=== PATIENT | female | born 1975 | race Caucasian/White ===

== ENCOUNTER → 2017-07-27 08:29 | Outpatient (CLI) | payer OTHER, SELFPAY ==
--- NOTE | 2017-07-27 08:35 | US_ITS ---
STUDY: ABDOMINAL ULTRASOUND - RIGHT UPPER QUADRANT REASON FOR VISIT: Female, 42 years old. Right upper quadrant pain. TECHNIQUE: Ultrasound evaluation of the right upper quadrant was performed with real-time and static gallego-scale imaging. TECHNICAL QUALITY: Adequate. COMPARISON: None. FINDINGS: Liver: The liver measures 14.8 cm. There is increased echogenicity consistent with mild fatty infiltration. The bile ducts are within normal limits. There is hepatic color flow. The direction of portal flow is hepatopetal. There is a 2.1 cm x 1.8 cm x 1.6 cm septated cyst in the left lobe of the liver. Gallbladder: Normal distended gallbladder. The gallbladder wall measures 2.4 mm. There is a negative sonographic Tirado's sign. There is no pericholecystic fluid. There are no gallstones. Common Bile Duct (C.B.D.): The common bile duct measures 4.1 mm. Pancreas: Normal size of the head, body and tail of the pancreas. There is normal echogenicity of the pancreas. There is no demonstrated pancreatic mass or cyst. Right Kidney: Normal size of the right kidney. The right kidney measures 11.5 cm x 4.9 cm x 4.3 cm. Normal renal cortex. The right cortex measures 1.2 cm. There is no demonstrated renal mass or cyst. There is no right hydronephrosis. US/Abdomen Limited IMPRESSION: Mild degree of fatty infiltration of the liver. Septated cyst in the left lobe of the liver. Electronically Signed: James Fermin MD at 10:26 EST Tel [phone], Service support ,
== END ==
LOC: USHP 08:31
PROVIDERS: Family Provider Family Medicine; PCP Family Medicine; Visit Provider Family Medicine
DX: R10.11 Right upper quadrant pain (principal)
CPT/HCPCS: 76705

== ENCOUNTER → 2017-09-23 08:08 | Outpatient (CLI) | payer OTHER, SELFPAY ==
--- NOTE | 2017-09-23 08:11 | RAD_ITS ---
PROCEDURE: SMALL BOWEL SERIES DATE OF EXAMINATION: September 23, 2017.. INDICATION: Female, 42 years old. Abdominal cramping with diarrhea and constipation. PHYSICIAN: James Fermin M.D. FLUOROSCOPY TIME (if supplied): (0:17) minutes/seconds TECHNIQUE: Radiographic and fluoroscopic images were taken of the small intestine following the ingestion of barium. COMPARISON: None. FINDINGS: A preliminary supine KUB was obtained. There is an unremarkable bowel gas pattern. A large amount of fecal material is present throughout the colon. The lung bases are unremarkable. The osseous structures are normal. The patient orally ingested approximately 12 ounces of thin barium Normal visualized fundus, body, and antrum of the stomach. Normal duodenal bulb, C-loop, and proximal jejunum. Normal visualized mucosal folds of the jejunum and ileum. There are no demonstrated dilatations, strictures, or masses of the small intestine. There is no mass displacement of the loops of small intestine. There is a normal motor pattern with barium reaching the colon within approximately 30 minutes. Spot films under fluoroscopic observation demonstrated a normal terminal ileum and ileocecal valve. RAD/Small Bowel Series Only IMPRESSION: Normal small bowel series. Electronically Signed: James Fermin MD at 13:59 EDT Tel [phone], Service support ,
== END ==
LOC: RAD 08:09
PROVIDERS: Family Provider Family Medicine; PCP Family Medicine; Visit Provider Nurse Practitioner Adult Health
DX: R10.33 Periumbilical pain (principal)
CPT/HCPCS: 74250

== ENCOUNTER → 2017-10-16 13:41 | Outpatient (CLI) | payer OTHER, SELFPAY ==
--- NOTE | 2017-10-16 13:44 | CT_ITS ---
STUDY: CT ABDOMEN WITH CONTRAST REASON FOR EXAM: Female, 42 years old. Liver cyst follow-up RADIATION DOSAGE (If Supplied By Facility): CTDIvol = ( 10.14 ) mGy, DLP = ( 363.11 ) mGycm TECHNIQUE: Transaxial images were obtained post I.V. administration of 100 ml of Isovue 300 contrast, and with oral contrast. Sagittal and coronal images were reconstructed. Individualized dose optimization techniques were used for this CT. COMPARISON: 07/06/2017 FINDINGS: The visualized lung bases are unremarkable. The visualized portions of the heart are within normal limits. Within the lateral aspect of the left lobe of the liver, there is a mildly bilobed well-defined nonenhancing cyst measuring 2.1 x 1.8 cm. The remainder of the liver is within normal limits. The gallbladder is contracted. Normal spleen. Normal pancreas. Normal bilateral adrenal glands. Normal right kidney. Normal left kidney. Normal visualized stomach. Visualized small and large bowel are within normal limits. Patient is status post appendectomy. Normal abdominal aorta. Normal inferior vena cava. Normal retroperitoneum. Normal abdominal wall. Normal osseous structures. CT/Abdomen WITH IV Contrast IMPRESSION: Well-defined mildly bilobed left lobe liver cyst. Otherwise, normal liver. Remainder is within normal limits. Electronically Signed: oRni Olson DO at 17:54 EDT Tel , Service support ,
== END ==
LOC: CT 13:43
PROVIDERS: Family Provider Family Medicine; PCP Family Medicine; Visit Provider Nurse Practitioner Adult Health
DX: K76.89 Other specified diseases of liver (principal)
CPT/HCPCS: 74160; Q9967

== ENCOUNTER → 2017-12-03 08:55 | Outpatient (CLI) | payer OTHER, SELFPAY ==
[2017-12-03 10:03] LABS: Absolute Lymphocyte Count 2.06 X10^3/ul (0.83-4.51); Absolute Neutrophil Count 3.1 X10^3/uL (2.0-7.7); Basophil# 0.03 X10^3/uL; Basophil% 0.5 % (0-1); Eosinophil# 0.38 X10^3/uL; Eosinophils% 6.3 % (0-5); Hematocrit 42.8 % (37-47); Hemoglobin 14.4 g/dl (12.0-15.0); Lymphocyte # 2.06 X10^3/ul (4.0); Lymphocyte % 34.3 % (19-41); Mean Corp Hgb Conc 33.6 g/gl (32-36); Mean Corpuscular Hgb 28.7 pg (27.0-32.0); Mean Corpuscular Volume 85.4 fL (81-99); Mean Platelet Vol. 9.1 fl (6.2-12.0); Monocyte# 0.44 X10^3/uL; Monocyte% 7.3 % (0-10); Neutrophil % 51.6 % (47-70); Platelet Count 273 K/mm3 (150-450); RBC Distribution Width CV 13.9 % (11.6-14.6); RBC Distribution Width SD 43.2 fl (35.1-43.9); Red Blood Count 5.01 M/mm3 (4.2-5.4)
[2017-12-03 10:04] LABS: POSITIVE COUNT NO; POSITIVE DIFFERENTIAL NO; POSITIVE MORPHOLOGY NO
[2017-12-03 10:34] LABS: AST(SGOT) 16 U/L (15-37); Alanine Aminotransfer ALT/SGPT 21 U/L (13-56); Albumin, Serum 3.7 g/dL (3.2-5.0); Alkaline Phosphatase 71 U/L (45-117); Anion Gap 6 (5-15); BUN 11 mg/dL (7-18); BUN/Creat Ratio 15.7 RATIO (10-20); CRP < 2.90 mg/L (0.0-3.0); Chloride 106 mmol/L (98-107); EST Glomerular Filtration Rate 96 mL/min (>60); Est Glom Filt Rate - Afr Amer 117 mL/min (>60); Globulin 3.7 g/dL (2.2-4.2); Glucose 88 mg/dL (74-106); Potassium 3.9 mmol/L (3.5-5.1); Protein, Total 7.4 g/dL (6.4-8.2); Rheumatoid Factor < 10.0 IU/mL (<15); Sodium Level 140 mmol/L (136-145); Thyroid Stim Hormone (TSH) 0.59 uIU/mL (0.358-3.74)
[2017-12-04 09:56] LABS: Vitamin D,25 Hydroxy 20.1 ng/mL (29.95-100.01)
[2017-12-04 14:09] LABS: Anti-Centromere B Ab <0.2 AI (0.0-0.9); Anti-Chromatin <0.2 AI (0.0-0.9); Anti-Jo <0.2 AI (0.0-0.9); Anti-Scleroderma-70 AB <0.2 AI (0.0-0.9); RNP Ab <0.2 AI (0.0-0.9); SJOGREN'S Anti-SS-A test < 0.2 AI (0.0-0.9); SJOGREN'S Anti-SS-B test < 0.2 AI (0.0-0.9); Smith Ab <0.2 AI (0.0-0.9)
[2017-12-04 14:33] LABS: Anti-dsDNA Ab 2 IU/mL (0-9)
== END ==
PROVIDERS: Family Provider Family Medicine; PCP Family Medicine; Visit Provider Family Medicine
DX: E72.12 Methylenetetrahydrofolate reductase deficiency (principal); R76.8 Other specified abnormal immunological findings in serum; M06.4 Inflammatory polyarthropathy
CPT/HCPCS: 36415; 80053; 81291; 82306; 84443; 85025; 86140; 86225; 86235; 86431

== ENCOUNTER → 2017-12-07 10:39 | Outpatient (CLI) | payer OTHER, SELFPAY ==
--- NOTE | 2017-12-07 10:41 | US_ITS ---
STUDY: THYROID ULTRASOUND REASON FOR EXAM: Female, 42 years old. Thyroid nodule identified in left lower lobe by physician TECHNIQUE: Ultrasound evaluation of the thyroid was performed with real-time and static gallego-scale imaging. COMPARISON: None. FINDINGS: RIGHT LOBE: The right lobe of the thyroid gland measures 5.5 x 2.2 x 2.1 cm. There is a homogeneous echotexture. Solid nodule midpole measuring 0.3 x 0.3 x 0.3 cm. LEFT LOBE: The left lobe of the thyroid gland measures 5.2 x 2.2 x 1.9 cm. There is a homogeneous echotexture. Solid nodules in the lower pole measuring 0.4 x 0.3 x 0.3 cm and 0.8 x 0.7 x 0.5 cm. ISTHMUS: The isthmus measures 3 mm . The regional lymph nodes are normal. US/Thyroid IMPRESSION: The thyroid gland is enlarged. Bilateral solid nodules, the largest on the right measuring 0.3 cm and on the left 0.8 cm. Electronically Signed: Arsen Reeves MD at 7:11 EDT , Service support ,
== END ==
PROVIDERS: Family Provider Family Medicine; PCP Family Medicine; Visit Provider Family Medicine
DX: E07.9 Disorder of thyroid, unspecified (principal)
CPT/HCPCS: 76536

== ENCOUNTER → 2017-12-21 07:19 | Outpatient (CLI) | payer OTHER, SELFPAY ==
--- NOTE | 2017-12-21 07:22 | NM_ITS ---
CLINICAL: 42-year-old female with reported history of thyroid nodularity. I-123 THYROID UPTAKE and SCAN COMPARISON: Thyroid ultrasound report 12/07/2017 FINDINGS: The patient was administered a 308 uCi I-123 capsule by mouth. The 4-hour I-123 radioactive iodine thyroidal uptake was calculated to be 10.4 % (normal 5 to 25 %). The 24-hour I-123 radioactive iodine thyroidal uptake was calculated to be 29.6 % (normal 5 to 40 %). The I-123 thyroid scan demonstrates homogeneous radiopharmaceutical concentration throughout both lobes of a U-shaped thyroid gland. There are no colloidal parenchymal hypofunctioning cold nodules noted in either lobe of the thyroid gland. NM/Thyroid Uptake Single or Mult IMPRESSION: 1. NORMAL 4- and 24-hour I-123 radioactive iodine thyroidal uptakes. 2. 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 (Wilfrid et al, J Nucl Med 32: 1455, 1990). 3. No hypofunctioning-cold nodules are identified. Electronically Signed: Mesfin Begum DO at 7:33 EDT Tel , Service support ,
== END ==
PROVIDERS: Family Provider Family Medicine; PCP Family Medicine; Visit Provider Family Medicine
DX: E04.2 Nontoxic multinodular goiter (principal)
CPT/HCPCS: 78012; A9516

== ENCOUNTER 2018-02-08 21:06 | Emergency (ER) | payer OTHER, SELFPAY ==
[2018-02-08 21:07] VITALS: BP 114/87; PULSE 86; RESP 18; TEMP 36.5; O2SAT 99; BMI 22.6
--- NOTE | 2018-02-08 22:54 | ED.DCSUM_ITS ---
- ER Visit Summary Date of Service: 02/08/18 Chief Complaint: Right ankle pain History of Present Illness: The patient is a [address] David Palafox. She reports that she stepped in a hole this evening and had a forced inversion injury of her right ankle. States that she heard a pop. She has pain is sharp and 10 out of 10 with walking. 7 out of 10 at rest. Does complain of paresthesias in her small toe. She denies any other injuries. Physical Examination: Vitals: Stable. Afebrile. Neck: No vertebral tenderness. Full ROM without difficulty. Cleared by NEXUS criteria. Back: No vertebral tenderness. General: A&O x 3. NAD. Cardiovascular exam: Regular rate and rhythm, no murmur, rub or gallop. Respiratory exam: Chest nontender. No crepitus. Clear to auscultation bilaterally. No wheezes or stridor. Abdominal exam: Soft, nontender, nondistended, normal bowel sounds. No pain in RUQ or LUQ specifically. No peritoneal signs. Extremity: Moderate tenderness palpation over the lateral malleolus. No pain over the medial malleolus. No pain of the base the fifth metatarsal or proximal fibula. Test Results: X-ray is negative. Emergency Department Course and Treatment: Patient refused pain medications. She is placed in an Aircast and placed on crutches. Treatment Plan: Patient be discharged instructions from Dr. David Palafox in 1 week if not improving. Disposition: To home in improved and stable condition. Impression: 1. Right ankle sprain. This note was generated with [employer] dictation software. It may contain incorrect words, spelling, and punctuation that were not noted in review of the chart prior to signing ED Disposition - Plan for ED Patient: Disposition: Home or Assisted Living Chief Complaint: Lower Extremity Injury Instructions: ED Sprain Ankle W X Ray Referrals: David Palafox MD [Primary Care Provider] - 1 Week if not improving
[2018-02-08 23:10] VITALS: BP 116/72; PULSE 80; RESP 18; O2SAT 96
== END 2018-02-08 23:11 | disposition home or self-care (01) ==
LOC: ED 22:44
PROVIDERS: Emergency Provider Emergency Medicine; Family Provider Family Medicine; PCP Family Medicine
DX: S93.401A Sprain of unspecified ligament of right ankle, initial encounter (principal); R20.2 Paresthesia of skin; X50.1XXA Overexertion from prolonged static or awkward postures, initial encounter; Y93.9 Activity, unspecified; Y92.9 Unspecified place or not applicable; F17.200 Nicotine dependence, unspecified, uncomplicated
CPT/HCPCS: 73610; 99284

== ENCOUNTER → 2018-02-18 14:19 | Outpatient (CLI) | payer OTHER, SELFPAY | PROVIDERS: Family Provider Family Medicine; PCP Family Medicine; Visit Provider Family Medicine | DX: S93.401A Sprain of unspecified ligament of right ankle, initial encounter (principal); X58.XXXA Exposure to other specified factors, initial encounter; Y93.9 Activity, unspecified; Y92.9 Unspecified place or not applicable; Y99.9 Unspecified external cause status | CPT/HCPCS: 73610; 73630 ==

== ENCOUNTER → 2018-12-01 06:57 | Outpatient (CLI) | payer OTHER, SELFPAY ==
[2018-12-01 07:57] LABS: Glucose GTT- Fasting 91 mg/dL (74-106)
[2018-12-01 08:57] LABS: Glucose GTT- 1 Hour 162 mg/dL (120-170)
[2018-12-01 08:58] LABS: Glucose GTT-30 minutes 197 mg/dL (110-170)
[2018-12-01 09:22] LABS: Insulin 10.5 mU/L (2.6-37.6)
[2018-12-01 09:23] LABS: Insulin 138.3 mU/L (2.6-37.6)
[2018-12-01 10:21] LABS: Glucose GTT- 2 Hour 116 mg/dL (70-120)
[2018-12-01 11:37] LABS: Glucose GTT- 3 Hour 95 mg/dL (74-106)
[2018-12-01 12:33] LABS: Glucose GTT- 4 Hour 52 mg/dL (74-106)
[2018-12-01 13:23] LABS: Glucose GTT- 5 Hour 66 mg/dL (74-106)
== END ==
PROVIDERS: Family Provider Family Medicine; PCP Family Medicine; Referring Provider Family Medicine; Visit Provider Family Medicine
DX: E88.81 Metabolic syndrome and other insulin resistance (principal)
CPT/HCPCS: 36415; 82533; 82951; 82952; 83525

== ENCOUNTER → 2019-08-24 09:59 | Outpatient (CLI) | payer OTHER, SELFPAY ==
[2019-08-24 10:07] LABS: Bacteria 0 SEEN /hpf (None Seen); Mucous, Urine 0 SEEN /hpf (<or=2+); Red Blood Cells-Urine 0 SEEN /hpf (0-5); White Blood Cells 0 SEEN /hpf (0-5)
--- NOTE | 2019-08-24 10:20 | CT_ITS ---
STUDY: CT ABDOMEN AND PELVIS WITHOUT CONTRAST REASON FOR EXAM: Female, 44 years old. RLQ PAIN X DAYS. PRIOR PARTIAL HYSTERECTOMY STILL HAS ONE OVARY RADIATION DOSAGE (If Supplied By Facility): CTDIvol = ( 9.05 ) mGy, DLP = ( 412.05 ) mGycm TECHNIQUE: Transaxial images were obtained from the dome of the diaphragm to the symphysis pubis without oral contrast, and without intravenous contrast. Sagittal and coronal images were reconstructed. Individualized dose optimization techniques were used for this CT. COMPARISON: Comparison is made with prior study dated October 16, 2017. FINDINGS: The visualized lung bases are unremarkable. The visualized portions of the heart are within normal limits. Stable 2.1 cm x 1.8 cm septated cyst in the medial aspect of the left lobe of the liver. Normal gallbladder and extrahepatic biliary system. Normal spleen. Normal pancreas. Normal bilateral adrenal glands. Normal right kidney. Normal left kidney. Normal visualized stomach. Normal small intestine. Normal colon. The appendix is visualized and appears normal. There is scattered atherosclerotic calcification of the abdominal aorta, without a demonstrated aneurysm. Normal inferior vena cava. There is borderline retroperitoneal lymphadenopathy with enlarged nodes no greater than 10mm in the short axis diameter. Normal urinary bladder. There is absence of the uterus consistent with a prior hysterectomy. Normal abdominal wall. Normal osseous structures. CT/Abdomen/Pelvis without Cont IMPRESSION: No acute abnormality is seen. Stable cyst in the left hepatic lobe. Electronically Signed: James Fermin, at 12:44 EDT , Service support ,
[2019-08-24 10:22] LABS: Absolute Lymphocyte Count 2.71 X10^3/uL (0.83-4.51); Absolute Neutrophil Count 3.4 X10^3/uL (2.0-7.7); Basophil# 0.06 X10^3/uL; Basophil% 0.9 % (0-1); Eosinophil# 0.23 X10^3/uL; Eosinophils% 3.4 % (0-5); Hematocrit 43.2 % (37-47); Hemoglobin 14.5 g/dL (12.0-15.0); Lymphocyte # 2.71 X10^3/ul (4.0); Lymphocyte % 40.1 % (19-41); Mean Corp Hgb Conc 33.6 g/dL (32-36); Mean Corpuscular Hgb 28.7 pg (27.0-32.0); Mean Corpuscular Volume 85.5 fL (81-99); Mean Platelet Vol. 8.9 fl (6.2-12.0); Monocyte# 0.39 X10^3/uL; Monocyte% 5.8 % (0-10); NRBC Flagged by Analyzer 0 % (0-5); Neutrophil # 3.35 X10^3/uL (2.7-7.7); Neutrophil % 49.5 % (47-70); Platelet Count 322 K/mm3 (150-450); RBC Distribution Width CV 13.5 % (11.6-14.6); RBC Distribution Width SD 41.9 fl (35.1-43.9); Red Blood Count 5.05 M/mm3 (4.2-5.4); White Blood Count 6.8 K/mm3 (4.4-11.0)
[2019-08-24 10:23] LABS: Color, Urine Yellow (Yellow); Glucose, Dipstick Normal (Normal); Ketone-Dipstick Negative (Negative); Leukocyte Esterase-Dipstick Negative /ul (Negative); Nitrite-Dipstick Negative (Negative); Occult Blood-Urine Negative /ul (Negative); Protein-Dipstick Negative (Negative); Urine Bilirubin Dipstick Negative (Negative); Urine Clarity Sl. Cloudy (Clear); Urine Urobilinogen Normal (Normal)
[2019-08-24 10:32] LABS: Squamous Epithelial Cells - UA 0-5 SEEN /hpf (5-10)
[2019-08-24 10:44] LABS: AST(SGOT) 21 U/L (15-37); Alanine Aminotransfer ALT/SGPT 27 U/L (13-56); Alkaline Phosphatase 87 U/L (45-117); Anion Gap 4 (5-15); BUN 15 mg/dL (7-18); BUN/Creat Ratio 18.9 RATIO (10-20); CRP < 2.90 mg/L (0.0-3.0); Calcium,Total 9.5 mg/dL (8.5-10.1); Chloride 104 mmol/L (98-107); Creatinine, Serum 0.79 mg/dL (0.55-1.02); EST Glomerular Filtration Rate 83 mL/min (>60); Est Glom Filt Rate - Afr Amer 100 mL/min (>60); Globulin 3.9 g/dL (2.2-4.2); Glucose 88 mg/dL (74-106); Potassium 3.9 mmol/L (3.5-5.1); Protein, Total 7.9 g/dL (6.4-8.2); Sodium Level 138 mmol/L (136-145)
== END ==
PROVIDERS: PCP Family Medicine; Referring Provider Family Medicine; Visit Provider Family Medicine
DX: R10.31 Right lower quadrant pain (principal)
CPT/HCPCS: 36415; 74176; 80053; 81001; 85025; 86140

== ENCOUNTER → 2020-12-06 10:07 | Outpatient (CLI) | payer SELFPAY ==
--- NOTE | 2020-12-06 10:25 | CT_ITS ---
STUDY: CT ABDOMEN AND PELVIS WITH CONTRAST REASON FOR EXAM: Female, 45 years old. PAIN RADIATION DOSAGE (If Supplied By Facility): CTDIvol = ( 11.63 ) mGy, DLP = ( 803.62 ) mGycm TECHNIQUE: Transaxial images were obtained from the dome of the diaphragm to the symphysis pubis without oral contrast. Oral and amp; IV Gastrografin and amp; 100mL Isovue-300 was administered. Sagittal and coronal images were reconstructed. Individualized dose optimization techniques were used for this CT. COMPARISON: None. FINDINGS: The visualized lung bases are unremarkable. The visualized portions of the heart are within normal limits. The liver is normal in size and attenuation no focal lesion or abnormal enhancement however there is a cyst involving the inferior aspect of the left lobe of the liver measures 2.6 x 2.1 cm. The spleen is not enlarged. The suprarenal glands and pancreas are within normal limits. Both kidneys are normal in size, shape and position no hydronephrosis or stone formation. The small and large bowel are unremarkable. The appendix is seen. No free fluid or free air within the peritoneal cavity. The aorta and IVC and major branches are unremarkable.. CT/Abdomen/Pelvis WITH Contrast IMPRESSION: Negative CT scan of the abdomen except to note 2.6 x 2.1 cm cyst involving the inferior aspect of the left lobe of the liver. Electronically Signed: Massiel Dubose, at 13:49 EDT Tel , Service support ,
[2020-12-06 11:11] LABS: Hematocrit 41.8 % (37-47); Hemoglobin 13.7 g/dL (12.0-15.0); Mean Corp Hgb Conc 32.8 g/dL (32-36); Mean Corpuscular Hgb 27.9 pg (27.0-32.0); Mean Corpuscular Volume 85.1 fL (81-99); Mean Platelet Vol. 9.3 fl (6.2-12.0); Platelet Count 346 K/mm3 (150-450); RBC Distribution Width CV 13.6 % (11.6-14.6); RBC Distribution Width SD 42.3 fl (35.1-43.9); Red Blood Count 4.91 M/mm3 (4.2-5.4); White Blood Count 7.9 K/mm3 (4.4-11.0)
[2020-12-06 11:50] LABS: AST(SGOT) 16 U/L (15-37); Alanine Aminotransfer ALT/SGPT 22 U/L (13-56); Albumin, Serum 3.9 g/dL (3.2-5.0); Alkaline Phosphatase 94 U/L (45-117); Anion Gap 4 (5-15); BUN 10 mg/dL (7-18); BUN/Creat Ratio 12.3 RATIO (10-20); Calcium,Total 9.3 mg/dL (8.5-10.1); Chloride 103 mmol/L (98-107); Creatinine, Serum 0.81 mg/dL (0.55-1.02); EST Glomerular Filtration Rate 80 mL/min (>60); Est Glom Filt Rate - Afr Amer 97 mL/min (>60); Globulin 3.9 g/dL (2.2-4.2); Glucose 92 mg/dL (74-106); Potassium 4.1 mmol/L (3.5-5.1); Protein, Total 7.8 g/dL (6.4-8.2); Sodium Level 137 mmol/L (136-145)
== END ==
PROVIDERS: PCP Family Medicine; Referring Provider Family Medicine; Visit Provider Family Medicine
DX: R10.13 Epigastric pain (principal)
CPT/HCPCS: 36415; 74177; 80053; 85027; Q9967

== ENCOUNTER → 2023-01-23 | Outpatient (CLI) | payer SELFPAY | END | disposition home or self-care (01) | PROVIDERS: PCP Family Medicine; Referring Provider Family Medicine; Visit Provider Family Medicine | DX: L02.91 Cutaneous abscess, unspecified (principal) | CPT/HCPCS: 87070; 87205 ==

== ENCOUNTER 2023-03-08 10:27 | Emergency (ER) | payer SELFPAY ==
[2023-03-08 10:29] VITALS: BP 131/93; PULSE 74; RESP 14; TEMP 36.6; O2SAT 99; BMI 23.8
[2023-03-08] MEDS: Tetracaine 0.5% Ophthalmic Bottle 1 DRP EACH EYE (10:39)
[2023-03-08] MEDS: Fluorescein 1 MG STRIP 1 STRIP EACH EYE (10:39)
--- NOTE | 2023-03-08 11:07 | EDS_ITS ---
HPI History of Present Illness Chief Complaint: Eye Problem Informant: patient Narrative Narrative: 47-year-old female presenting to the emergency room with left eye discomfort. Patient states she fell asleep last night with her contacts in place. When she awoke this morning contact was in her right eye but her left eye appeared red laterally. She states she feels like there is something there and wonders if her contacts is still in her eye. She does not recall removing her contacts. She did remove the right contact prior to arrival. She states when she looks to her eye it appears as if she is not wearing her contacts. She notes eye tearing and felt the eye seemed goopy today. She is unsure of the name of her eye doctor that she sees once a year for eye exams. [facility] Medical History (Updated 03/08/23 @ 11:[address] Andrew Dean DO) GERD (gastroesophageal reflux disease) Medical History no medical history Home Medications Ranitidine [Zantac] 150 mg PO BID 02/08/18 [History Last Taken Unknown] ergocalciferol (vitamin D2) 1,250 mcg (50,000 unit) capsule (Vitamin D2) unit PO Q7D 02/08/18 [History Last Taken Unknown] folic acid 400 mcg tablet 0.4 mg PO DAILY@0800 02/08/18 [History Last Taken Unknown] Allergy/AdvReac Type Severity Reaction Status Date / Time latex Allergy Rash Verified 03/08/23 10:28 Penicillins Allergy Itching Verified 03/08/23 10:28 doxycycline AdvReac Vomiting Verified 03/08/23 10:28 erythromycin base AdvReac Vomiting Verified 03/08/23 10:28 [Erythromycin Base] metronidazole [From Flagyl] AdvReac Other Verified 03/08/23 10:28 Metronidazole HCl AdvReac Other Verified 03/08/23 10:28 [From Flagyl] sulfamethoxazole AdvReac Upset Verified 03/08/23 10:28 [From Bactrim] Stomach trimethoprim [From Bactrim] AdvReac Upset Verified 03/08/23 10:28 Stomach Family History no significant family his Surgical History no surgical history Social History Smoking Status: Current every day smoker tobacco type: cigarettes ROS ROS ED Constitutional Constitutional ED: Denies chills or weight loss Eyes Eyes: Reports other Details: Left eye pain/foreign body sensation and redness tearing ; Denies change in vision or diplopia ENT ENT ED: Denies ear pain, rhinorrhea or sore throat Cardiovascular Cardiovascular: Denies chest pain, orthopnea, palpitations or racing heartbeat Respiratory/Chest Respiratory/Chest: Denies cough, dyspnea or orthopnea Gastrointestinal Gastrointestinal: Denies abdominal pain, diarrhea, nausea or vomiting Genitourinary Genitourinary ED: Denies dysuria, hematuria or urinary frequency Musculoskeletal Musculoskeletal: Denies arthralgias or myalgias Integumentary Denies abscess or rash Neurologic Neurologic: Denies headache(s) or weakness Psychiatric Psychiatric: Denies anxiety, depression, suicidal ideation or suicidal thoughts Endocrine Endocrinology: Denies polydipsia, polyphagia or polyuria Allergic/Immunologic Allergic/Immunologic ED: Denies mouth swelling, tongue swelling or urticaria EXAM Physical Exam Const Vital Signs: 03/08/23 10:29 Temperature 97.8 F Temperature Source Temporal Pulse Rate 74 Respiratory Rate 14 Blood Pressure 131/93 H Blood Pressure Mean 105 Pulse Ox 99 Oxygen Delivery Method Room Air Positive well nourished and well developed General Appearance ED: well developed HEENT Reports normocephalic, head/scalp atraumatic and moist mucous membranes Eyes PERRL and EOMs intact bilaterally Eyes Narrative: With eversion of the eyelids I do not see a contact lens. There is a subconjunctival hemorrhage noted laterally. Slit-lamp examination reveals subtle corneal defects with fluorescein staining. The anterior chamber appears deep and quiet Neck no lymphadenopathy, supple and no JVD Resp normal respiratory effort and clear to auscultation bilaterally Cardio regular rate, regular rhythm and no murmurs GI normal to inspection, nondistended, normoactive bowel sounds and non-tender Palpation: soft Back/Spine no CVA tenderness and normal ROM Extremity normal to inspection General Extremety ED: Negative for edema General Extremity: Negative for edema Neuro oriented x3 and CN's II-XII intact bilaterally Sensorium / Orientation: alert Motor Exam: strength 5/5 throughout Psych mental status grossly normal Mood & Affect: Negative for depressed or tearful Skin no rashes or lesions noted and no wounds Image ED - Eye Diagram: 1. MDM MDM MDM Narrative Medical decision making narrative: At the time of examination I do not see a contact lens in the eye. Because of the corneal defects we will be treating with ophthalmology ointment. The subconjunctival hemorrhage should be self-limited. Have asked the patient to follow-up with her eye doctor tomorrow (Thursday) or with ophthalmology here locally. Patient notes understanding the plan. She will not be placing new contact lens in the eye. Discharge Plan Triage Chief Complaint: Eye Problem ED Provider: Andrew Dean Dx/Rx/DC Orders Clinical Impression: Keratitis secondary to contact lens, Subconjunctival hemorrhage Instructions: Subconjunctival Hemorrhage, ED Corneal Injury, Contact Lens Prescriptions: No Action folic acid 0.4 MG tablet 0.4 mg PO DAILY@0800 ergocalciferol (vitamin D2) [Vitamin D2] 50,000 UNIT capsule PO Q7D Ranitidine [Zantac] 150 MG tablet 150 mg PO BID Primary Care Provider: David Palafox Referrals: David Palafox MD [Primary Care Provider] - Barry Argueta MD [Med Staff - Active Staff] - As soon as possible Activity Restrictions/Additional Instructions: Place 0.5 inch ribbon to the inner lower left eyelid every 4 hours while awake until seen by ophthalmology Disposition Disposition: Home, Self Care
[2023-03-08] MEDS: Neomycin/Bacitracin/Polymyxin Opth. Ointment 1 APPLIC LEFT EYE (11:46)
== END 2023-03-08 11:49 | disposition home or self-care (01) ==
LOC: ED 11:44
PROVIDERS: Emergency Provider Emergency Medicine; PCP Family Medicine; Visit Provider Emergency Medicine
DX: H11.32 Conjunctival hemorrhage, left eye (principal); F17.210 Nicotine dependence, cigarettes, uncomplicated; H16.8 Other keratitis
CPT/HCPCS: 99282

== ENCOUNTER 2023-11-28 22:08 | Emergency (ER) | payer SELFPAY ==
[2023-11-28 22:08] VITALS: BP 129/91; PULSE 87; RESP 15; TEMP 36.9; O2SAT 97; BMI 24.8
--- NOTE | 2023-11-28 22:48 | EDS_ITS ---
HPI History of Present Illness Chief Complaint: Eye Problem Informant: patient and spouse/S.O. Onset/Context/Timing Location: Left Eye Onset: Today Context: Sudden Onset Timing: Continuous Worsened by: Nothing Relieved by: Nothing Associated Symptoms Associated Symptoms - Eyes: Eyelid swelling and Pain; Negative for Burning, Crusting, Drainage, Foreign body sensation, Itching, Matting, Photophobia or Redness History of injury: Yes and Direct trauma Visual correction: Corrective contact lenses Narrative Narrative: Patient presents with injury to her left eye that occurred tonight. Patient st ates her stepson and a friend of his were playing and one of them hit an iPhone that the other one was holding. Patient states that the iPhone flew across the room and hit her in her left eye. Patient noted some swelling to her left upper eyelid. Patient admits to some pain in her left eye. Patient admits to some blurry vision in her eye. Patient wears contact lenses and thinks her contact lens is stuck in her left eye. Patient denies any redness. [facility] Medical History (Updated 11/28/23 @ 23:[address] David Bean, DO) GERD (gastroesophageal reflux disease) Home Medications ?Medication ?Instructions ?Recorded ?Last Taken ?Type Ranitidine [Zantac] 150 mg PO BID 02/08/18 Unknown History ergocalciferol (vitamin D2) 1,250 unit PO Q7D 02/08/18 Unknown History mcg (50,000 unit) capsule (Vitamin D2) folic acid 400 mcg tablet 0.4 mg PO DAILY@0800 02/08/18 Unknown History Allergy/AdvReac Type Severity Reaction Status Date / Time latex Allergy Rash Verified 11/28/23 22:13 Penicillins Allergy Itching Verified 11/28/23 22:13 doxycycline AdvReac Vomiting Verified 11/28/23 22:13 erythromycin base AdvReac Vomiting Verified 11/28/23 22:13 (Erythromycin Base) metronidazole (From Flagyl) AdvReac Other Verified 03/08/23 10:28 Metronidazole HCl (From AdvReac Other Verified 11/28/23 22:13 Flagyl) sulfamethoxazole (From AdvReac Upset Verified 11/28/23 22:13 Bactrim) Stomach trimethoprim (From Bactrim) AdvReac Upset Verified 11/28/23 22:13 Stomach Family History no significant family his Surgical History (Updated 11/28/23 @ 22:[address] David Bean DO) History of hysterectomy Social History Smoking Status: Current every day smoker tobacco type: cigarettes ROS ROS ED Constitutional Constitutional ED: Denies chills or fever(s) Eyes Eyes: Reports blurry vision; Denies diplopia ENT ENT ED: Denies rhinorrhea or sore throat Cardiovascular Cardiovascular: Denies chest pain or palpitations Respiratory/Chest Respiratory/Chest: Denies cough or dyspnea Gastrointestinal Gastrointestinal: Denies nausea or vomiting Genitourinary Genitourinary ED: Denies dysuria or hematuria Musculoskeletal Musculoskeletal: Denies back pain or neck pain Integumentary Denies abscess or rash Neurologic Neurologic: Denies headache(s) or weakness Allergic/Immunologic Allergic/Immunologic ED: Denies mouth swelling or urticaria EXAM Physical Exam Const Vital Signs: 11/28/23 22:08 Temperature 98.4 F Temperature Source Temporal Pulse Rate 87 Respiratory Rate 15 Blood Pressure 129/91 H Blood Pressure Mean 103 Pulse Ox 97 Oxygen Delivery Method Room Air Positive well nourished and well developed General Appearance ED: well developed and NAD HEENT HEENT Narrative: There is some mild ecchymosis over the bridge of the nose. There is no bony crepitance or step-off. There is no deformity noted. Eyes Eyes Narrative: Pupils are equal, round, and reactive to light bilaterally. Extraocular muscles are intact. There are no foreign bodies noted. There is no hyphema noted. Anterior chamber was clear. I do not see a contact lens in her eye at this time. There is a good red reflex. Patient was uncooperative with funduscopic examination. Neuro oriented x3, CN's II-XII intact bilaterally, moves all extremities and no sensory deficits noted Sensorium / Orientation: alert Motor Exam: strength 5/5 throughout MDM MDM MDM Narrative Medical decision making narrative: Differential diagnosis includes corneal abrasion, traumatic iritis, and periorbital contusion. On reevaluation, slit-lamp was used. The contact lenses are in place bilaterally. Patient was advised that there could be a corneal abrasion underneath her contact lenses. Patient was instructed to take her contact lenses out when she gets home. Patient was given Cipro ophthalmic drops to apply to her left eye. Patient was instructed to use 1 to 2 drops every 2 hours while awake. Patient was instructed to wear her glasses for the next 2 days. Patient was instructed to follow-up with her primary care physician in 3 to 5 days for reevaluation. Patient was advised that if there is a corneal abrasion, it should heal in 24 to 48 hours. Patient understood and was agreeable with the plan. All questions were answered. Discharge Plan Triage Chief Complaint: Eye Problem ED Provider: David Bean Dx/Rx/DC Orders Clinical Impression: Corneal abrasion, left, Contusion of nose, initial encounter Instructions: ED Corneal Abrasion, ED Facial Contusion Prescriptions: No Action folic acid 0.4 MG tablet 0.4 mg PO DAILY@0800 ergocalciferol (vitamin D2) [Vitamin D2] 50,000 UNIT capsule PO Q7D Ranitidine [Zantac] 150 MG tablet 150 mg PO BID Primary Care Provider: David Palafox Referrals: David Palafox MD [Primary Care Provider] - 3-5 Days Print Language: Kiswahili Disposition Disposition: Home, Self Care
[2023-11-28] MEDS: Fluorescein 1 MG STRIP 1 STRIP OPHTHALMIC (23:33)
[2023-11-28] MEDS: Tetracaine 0.5% Ophthalmic Bottle 1 DRP OPHTHALMIC (23:33)
--- NOTE | 2023-11-29 22:31 | ED.RN ---
Patient calls in with questions regarding care yesterday. States the Dr told her she was to use antibiotic eye drops and states she was not given them while she was here and was not given a prescription. This RN investigates to find that the patient is correct she did not receive them here and did not get a prescription or meds to bed for this medication. This RN spoke with Dr Davies who agreed to call Cipro eye drops to patients pharmacy of choice which is [facility] in [place]. This patient then voices her concern over the competency of the nurse who discharged her stating when she asked this nurse about the antibiotic drops the nurse handed her the numbing drops the dr used Pt states she went home and looked them up and states she found they are not for home use and could make her condition worse. This RN apologizes and directs patient to discard those drops and supervisor opening and picking the cipro drops from [facility] tomorrow. Pt was also given Kelvin Velasco name and phone number.
== END 2023-11-28 23:59 | disposition home or self-care (01) ==
PROVIDERS: Emergency Provider Emergency Medicine; PCP Family Medicine; Visit Provider Emergency Medicine
DX: S05.02XA Injury of conjunctiva and corneal abrasion without foreign body, left eye, initial encounter (principal); W20.8XXA Other cause of strike by thrown, projected or falling object, initial encounter; K21.9 Gastro-esophageal reflux disease without esophagitis; F17.210 Nicotine dependence, cigarettes, uncomplicated; Z79.899 Other long term (current) drug therapy; Z97.3 Presence of spectacles and contact lenses
CPT/HCPCS: 99284